=== PATIENT | male | born 1990 | race Two or more races ===

== ENCOUNTER → 2023-12-02 | Emergency (ER) | payer MEDICAID ==
[~2023-12-02] VITALS: Ht 172.7 cm; Wt 69.6 kg
[2023-12-02 09:19] VITALS: BP 132/78; PULSE 72; RESP 16; TEMP 98; O2SAT 98
[2023-12-02] MEDS: TETanus/Pertussis (Acell)/Diphther VAC/PF (Tdap-Adult) 0.5ml syringe IMVAC ONE (10:10)
== END | disposition home or self-care (01) ==
LOC: ER 09:19
DX: S61.305A Unspecified open wound of left ring finger with damage to nail, initial encounter (principal); X58.XXXA Exposure to other specified factors, initial encounter; Y93.89 Activity, other specified; Y92.89 Other specified places as the place of occurrence of the external cause; Y99.8 Other external cause status
CPT/HCPCS: 73140; 99283

== ENCOUNTER 2024-01-09 10:00 | Emergency (ER) | payer OTHER, MEDICAID ==
[~2024-01-09] VITALS: Ht 175.3 cm; Wt 74.8 kg
[2024-01-09 10:10] VITALS: BP 143/69; PULSE 84; RESP 18; O2SAT 98
[2024-01-09 11:07] VITALS: TEMP 97.2
== END 2024-01-09 11:09 | disposition home or self-care (01) ==
LOC: ER 10:00
DX: R07.2 Precordial pain (principal); R07.89 Other chest pain; V98.8XXA Other specified transport accidents, initial encounter; Y93.89 Activity, other specified; Y92.89 Other specified places as the place of occurrence of the external cause; Y99.8 Other external cause status
CPT/HCPCS: 71045; 99283